=== PATIENT | female | born 1980 | race Caucasian/White ===

== ENCOUNTER 2018-03-24 09:04 | Emergency (ER) | payer BC ==
--- OUTSIDE RECORDS SUMMARY | 2018-03-24 09:10 | XMS REPORT ---
:1980 External Reference #:[id number] Author Organization [facility] Address [address] [place] [address] Phone [phone] Care Team Providers Name Role Phone Jessie Nair M.D. 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 Primary Care Physician Unavailable Payers Type Date Identification Numbers Payment Provider Subscriber Commercial Policy Number: [id number] BC/BS Of MARIA EUGENIA Leonsera Quintana [employer] Name: [employer] [address] [address] PayID: [id number] [place] [address] Problems Date Description Provider Status Onset: 06/24/2014 Palpitations Edwar Holland M.D. Resolved Resolved: 12/13/2015 Family History Date Family Member(s) Problem(s) Comments Father Rectal Cancer squamous cell Father Coronary Artery Disease - CABG. AAA Mother Hypertension Mother Ra, CAD, HTN, obesity, depression Paternal Grandfather Leukemia, heart disease. 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[employer] Cigarette Use Never Smoked Cigarettes ETOH Use Social Alcohol Smoking Patient has never smoked Daily Caffeine Consumes on average 1 cup of coffee per day Exercise Type/Frequency Current Does not exercise currently Allergies, Adverse Reactions, Alerts Date Description Reaction Status Severity Comments 02/23/2014 NKDA active Medications Medication Date Status Form Strength Qnty SIG Indications Ordering Provider Bupropion HCL ER 07/22 Active Tablets 150mg 30tab 1 by mouth (XL) ER 24HR s every day Mandy Nair Multivitamins Active Capsules 1 by mouth Unknown /0000 every day Spironolactone Active Tablets 50mg 1 by mouth Unknown /0000 every day Bupropion HCL 05/23 Hx Tablets 75mg 30tab 1 by mouth s every day Korey - M.DAriella 07/22 Azithromycin 05/15 Hx Tablets 250mg 6tabs 2 tabs today, then [place], - 1 tab daily M.D. 05/23 for next days Amoxicillin 12/09 Hx Tablets 875mg 14tab 1 tab twice J01.91 David A. s a day x 7 [place], - days M.D. 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 three 04/19 times a day /2014 until clear No Active 06/24 Hx Unknown Medications /2013 - 04/12 Nitrofurantoin 05/17 Hx Capsules 100mg 30cap Take 1 599.0 Kelsie Monohydrate/Macro s Capsule By dina Black - Mouth Once [employer] 06/24 After [place] Doxycycline 03/24 Hx Capsules 100mg 42cap 1 po bid Susi Hyclate /2013 s [facility], - [employer] 06/24 No Active 02/23 Hx Unknown Medications /2013 - 02/23 Work Note 02/23 Hx please excuse from [facility], - work due to [employer]UMP [employer] 04/06 infectious illness 02/21/14 through 02/24/14, may return without restriction s 02/25/14 Amoxicillin/Clavu 01/21 Hx Tablets 875-125mg 20tab 1 by mouth 461.9 carlos Garsia Potassium s twice a day M.D. - for 1 0days 02/22 Nitrofurantoin 12/04 Hx Capsules 100mg 30cap Take 1 599.0 Kelsie Monohydrate/ s Capsule By Sofia, crystals - Mouth Once [employer] 02/22 After [place] Polytrim 03/25 Hx Solution 58422-4.1 1bott 2 qtts in 372.00 Unit/ML-% le affected Sofia, - eye tid [employer] 02/22 until then 1 more day Biaxin 08/09 Hx Tablets 500mg 20tab 1 po bid Susi /2010 saima Szymanski, 10/29 M.D. Bupropion HCL 05/02 Hx Tablets 100mg 44tab 1 po qd x 2 311 Prachi LAriella ER 12HR s week. 1 po Citlaly, - bid 1 in M.D. 08/09 the am, noon. thereafter. Get A Massage. 05/02 Hx 311 Prachi LAriella Get Some Luis Boucher For - M.DAriella Yourself! 08/09 Lexapro 03/22 Hx Tablets 10mg 30tab 1 po qd 311 Prachi LAriella Michelet Enriquez M.D. 08/09 Citalopram 03/22 Hx Tablets 10mg 30tab 1 po daily Prachi Lee Hydrobromide Michelet Enriquez M.D. 08/09 Macrobid 02/13 Hx Caps 100mg 30cap Take One s Capsule By Sofia, - Mouth After [employer] 03/22 [place] Tri-Sprintec 10/26 Hx Tablets 0.035mg 1pk use as Kelsie directed Sofia, - [employer] 08/09 Nitrofurantoin 08/23 Hx Capsules 50mg Kelsie Macrocrystalline /2008 Sofia, - [employer] 08/23 Ortho-Tricyclen 08/23 Hx 1unit use as V25.09 Kelsie s directed Sofia, - [employer] 10/26 Nitrofurantoin 08/23 Hx Capsules 100mg 30cap 1 po after 599.0 Kelsie s intercourse Sofia, - [employer] 12/09 Nitrofurantoin 00 Hx Capsules 10cap prn Kelsie /0000 s Sofia, - [employer] 08/23 Multivitamins 00 Hx Tablets 100ta 1 po qd Unknown /0000 bs - 02/22 Loestrin 1.5/30 00/00 Hx Tablets 1.5-30mg- 1 by mouth Unknown () /0000 mcg every day - 02/15 Vital Signs Date Vital Result Comment 03/17/2018 BP Systolic 104 mmHg BP Diastolic 60 mmHg Heart Rate 68 /min Body Temperature 97.7 F Respiratory Rate 16 /min Height 67.25 inches 5'7.25" measured 12/13/15 Weight 126.00 lb BMI (Body Mass Index) 19.6 kg/m2 05/23/2017 BP Systolic 108 mmHg BP Diastolic 64 mmHg Heart Rate 64 /min Body Temperature 98.6 F Respiratory Rate 16 /min Height 67.25 inches 5'7.25" measured 12/13/15 Weight 128.25 lb BMI (Body Mass Index) 19.9 kg/m2 12/09/2016 BP Systolic 100 mmHg BP Diastolic 60 mmHg Heart Rate 86 /min Body Temperature 98.8 F Respiratory Rate 12 /min O2 % BldC Oximetry 98 % Height 67.25 inches 5'7.25" measured 12/13/15 Weight 129.00 lb BMI (Body Mass Index) 20.1 kg/m2 05/27/2016 BP Systolic 110 mmHg BP Diastolic 70 mmHg Heart Rate 64 /min Body Temperature 98.1 F Respiratory Rate 16 /min Height 67.25 inches 5'7.25" measured 12/13/15 Weight 126.00 lb BMI (Body Mass Index) 19.6 kg/m2 12/13/2015 BP Systolic 98 mmHg BP Diastolic 50 mmHg Heart Rate 72 /min Body Temperature 97.5 F Respiratory Rate 16 /min Height 67.25 inches 5'7.25" measured 12/13/15 Weight 125.12 lb BMI (Body Mass Index) 19.4 kg/m2 04/12/2015 BP Systolic 98 mmHg BP Diastolic 68 mmHg Heart Rate 76 /min Body Temperature 98.6 F Respiratory Rate 16 /min Height 67 inches 5'7" Weight 125.12 lb BMI (Body Mass Index) 19.6 kg/m2 06/24/2014 BP Systolic 112 mmHg BP Diastolic 64 mmHg Heart Rate 62 /min Body Temperature 98.7 F Respiratory Rate 16 /min Height 67 inches 5'7" Weight 122.00 lb BMI (Body Mass Index) 19.1 kg/m2 04/06/2014 BP Systolic 100 mmHg BP Diastolic 60 mmHg Heart Rate 72 /min Body Temperature 97.8 F Respiratory Rate 16 /min Height 67 inches 5'7" Weight 122.38 lb BMI (Body Mass Index) 19.2 kg/m2 02/23/2014 BP Systolic 92 mmHg BP Diastolic 62 mmHg Heart Rate 96 /min Body Temperature 97.0 F Height 67 inches 5'7" Weight 122.00 lb BMI (Body Mass Index) 19.1 kg/m2 01/21/2014 BP Systolic 100 mmHg BP Diastolic 68 mmHg Heart Rate 60 /min Body Temperature 96.4 F Respiratory Rate 18 /min O2 % BldC Oximetry 99 % Height 67 inches 5'7" Weight 122.00 lb BMI (Body Mass Index) 19.1 kg/m2 03/25/2011 BP Systolic 90 mmHg BP Diastolic 70 mmHg Heart Rate 60 /min Body Temperature 98.7 F Height 67 inches 5'7" Weight 124.00 lb BMI (Body Mass Index) 19.4 kg/m2 08/09/2010 BP Systolic 90 mmHg BP Diastolic 68 mmHg Heart Rate 90 /min Body Temperature 99.5 F Height 67 inches 5'7" Weight 123.00 lb BMI (Body Mass Index) 19.3 kg/m2 05/02/2010 BP Systolic 102 mmHg BP Diastolic 79 mmHg Heart Rate 76 /min Height 67 inches 5'7" Weight 123.00 lb BMI (Body Mass Index) 19.3 kg/m2 03/22/2010 BP Systolic 84 mmHg BP Diastolic 54 mmHg Heart Rate 72 /min Body Temperature 98.1 F Height 67 inches 5'7" Weight 126.00 lb BMI (Body Mass Index) 19.7 kg/m2 08/23/2009 BP Systolic 108 mmHg BP Diastolic 70 mmHg Heart Rate 64 /min Body Temperature 98.1 F Height 67 inches 5'7" Weight 127.00 lb BMI (Body Mass Index) 19.9 kg/m2 Results Test Date Test Result H/L Range Note Comp Metabolic Panel 06/13/2017 Sodium 137 mmol/L 133-145 Potassium 4.1 mmol/L 3.5-5.0 Chloride 105 mmol/L 101-111 Co2 Carbon Dioxide 28 mmol/L 22-32 Anion Gap 4 mmol/L 2-11 Glucose 92 mg/dL 70-100 Blood Urea Nitrogen 21 mg/dL 6-24 Creatinine 0.89 mg/dL 0.51-0.95 BUN/Creatinine Ratio 23.6 High 8-20 Calcium 9.1 mg/dL 8.6-10.3 Total Protein 6.6 g/dL 6.4-8.9 Albumin 4.1 g/dL 3.2-5.2 Globulin 2.5 g/dL 2-4 Albumin/Globulin Ratio 1.6 1-3 Total Bilirubin 0.50 mg/dL 0.2-1.0 Alkaline Phosphatase 33 U/L Low 34-104 Alt 11 U/L 7-52 Ast 11 U/L Low 13-39 Egfr Non- 71.0 >60 Egfr 91.3 >60 1 Lipid Profile (Trig/Chol/HDL) 06/13/2017 Triglycerides 71 mg/dL 2 Cholesterol 146 mg/dL 3 HDL Cholesterol 49.8 mg/dL 4 LDL Cholesterol 82 mg/dL 5 Urinalysis Profile 06/13/2017 Urine Color Yellow Urine Appearance Clear Urine Specific [place] 1.021 1.010-1.030 Urine pH 6.0 5-9 Urine Urobilinogen Negative Negative Urine Ketones Negative Negative Urine Protein Negative Negative Urine Leukocytes Negative Negative Urine Blood Negative Negative Urine Nitrite Negative Negative Urine Bilirubin Negative Negative Urine Glucose Negative Negative CBC Auto Diff 06/13/2017 White Blood Count 6.2 10^3/uL 3.5-10.8 Red Blood Count 4.54 10^6/uL 4.0-5.4 Hemoglobin 13.3 g/dL 12.0-16.0 Hematocrit 40 % 35-47 Mean Corpuscular Volume 89 fL 80-97 Mean Corpuscular Hemoglobin 29 pg 27-31 Mean Corpuscular HGB Conc 33 g/dL 31-36 Red Cell Distribution Width 13 % 10.5-15 Platelet Count 172 10^3/uL 150-450 Mean Platelet Volume 10 um3 7.4-10.4 Abs Neutrophils 4.1 10^3/uL 1.5-7.7 Abs Lymphocytes 1.5 10^3/uL 1.0-4.8 Abs Monocytes 0.4 10^3/uL 0-0.8 Abs Eosinophils 0.1 10^3/uL 0-0.6 Abs Basophils 0 10^3/uL 0-0.2 Abs Nucleated RBC 0 10^3/uL Granulocyte % 66.1 % 38-83 Lymphocyte % 24.4 % Low 25-47 Monocyte % 7.1 % 1-9 Eosinophil % 1.8 % 0-6 Basophil % 0.6 % 0-2 Nucleated Red Blood Cells % 0 Complete Blood Count 12/13/2015 WBC 8.2 x10^3/UL 3.6-9.6 RBC 4.55 x10^6/UL 3.90-5.70 HGB 13.3 g/dL 12.1-17.2 HCT 40 % 36-50 MCV 88.0 fL 82.2-97.4 MCH 29.2 pg 27.6-33.3 MCHC 33.3 g/dL 33.0-35.5 RDW 13.0 % 11.6-13.7 PLT 227 x10^3/UL 150-400 MPV 8.4 fL 7.4-10.4 Gran # 6.0 x10^3/UL 1.5-7.2 Lymph# 2.0 x10^3/UL 0.7-4.9 Pershing# 0.2 x10^3/UL 0.1-0.9 Gran % 71.7 % 42.2-75.2 Lymph % 25.1 % 20.5-51.1 Pershing% 3.2 % 1.7-9.3 Laboratory test finding 12/13/2015 Free T4 0.93 ng/dL 0.75-1.54 TSH 2.88 mIU/L 0.50-6.00 Serum Iron 68 g/dL 60-150 Ferritin 34 ng/mL 6-115 Laboratory test finding 12/13/2015 Luteinizing Hormone(LH), 18.1 mIU/mL 6, 7 S Testosterone, Free And 12/13/2015 Testosterone, Serum 5 ng/dL Low 8-48 6 Total Comment: TNP 6 Free Testosterone(Direct) 0.5 pg/mL 0.0-4.2 6 FSH, Serum 12/13/2015 FSH 8.8 mIU/mL 6, 8 Lyme Western Blot Ser 02/23/2014 IgG P93 Ab. Absent IgG P66 Ab. Absent IgG P58 Ab. Absent IgG P45 Ab. Absent IgG P41 Ab. Absent IgG P39 Ab. Absent IgG P30 Ab. Absent IgG P28 Ab. Absent IgG P23 Ab. Absent IgG P18 Ab. Absent Lyme IgG WB Interp. Negative 9 IgM P41 Ab. Absent IgM P39 Ab. Absent IgM P23 Ab. Absent Lyme IgM WB Interp. Negative 10 Lyme Igg/M W/RFX West 02/23/2014 Lyme IgG/IgM Ab 1.52 index High 0.00- 0.90 11 Lyme Ab Interp.,Eia Positive Lyme Disease Ab, Quant, IgM 0.94 index High 0.00-0.90 12 Lyme Ab IgM Interp., Eia Equivocal Babesia Microti AB PNL 02/23/2014 Babesia microti IgM <1:10 Neg:<1: 10 Babesia microti IgG <1:10 Neg:<1:10 13 Ebv Acute Infection Abs 02/23/2014 Ebv Ab Vca, IgM <36.0 U/mL 0.0- 35.9 14 Ebv Early Antigen Ab, IgG 71.6 U/mL High 0.0-8.9 15 Ebv Ab Vca, IgG 501.0 U/mL High 0.0-17.9 16 Ebv Nuclear Antigen Ab, IgG 104.0 U/mL High 0.0-17.9 17 Interpretation: SEE NOTE 18 Ehrlichia AB Panel 02/23/2014 E. chaffeensis (HME) IgG Negative Neg:<1 :64 (CTX) Titer E. chaffeensis (HME) IgM Titer Negative Neg:<1:20 19 Hge IgG Titer Negative Neg:<1:64 20 Hge IgM Titer Negative Neg:<1:20 21 Laboratory test 02/23/2014 Sed Rate (Fma/CMC/Centrex) 16mm finding Laboratory test 02/23/2014 Free T4 0.90 ng/dL 0.75-1.54 finding TSH 1.90 mIU/L 0.50-6.00 Vitamin B-12 338 pg/mL 230-1050 Vitamin D25 40 30-100 Comprehensive Metabolic Prof 02/23/2014 Sodium 140 mEq/L 134-149 Potassium 4.0 mEq/L 3.6-5.5 Chloride 98 mEq/L 94-112 Carbon Dioxide 27 mEq/L 21-32 Glucose 101 mg/dL 70-105 BUN 15 mg/dL 6-26 Creatinine 1.0 mg/dL 0.6-1.4 BUN/Creat Ratio 15.0 CALC 8.0-36.0 Calcium 9.4 mg/dL 8.6-10.2 Total Protein 7.1 g/dL 6.3-8.1 Albumin 4.8 g/dL 3.8-5.5 Globulin 2.3 g/dL 2.0-4.8 A/G Ratio 2.1 CALC 0.6-2.3 Alk. Phosphatase 56 U/L 30-110 Alt (SGPT) 17 U/L 7-35 Ast (Sgot) 16 U/L 5-34 Total Bilirubin 0.5 mg/dL 0.2-1.3 Complete Blood Count 02/23/2014 WBC 5.9 x10^3/UL 3.6-9.6 RBC 4.02 x10^6/UL 3.90-5.70 HGB 11.7 g/dL Low 12.1-17.2 HCT 35 % Low 36-50 MCV 86.0 fL 82.2-97.4 MCH 29.2 pg 27.6-33.3 MCHC 34.0 g/dL 33.0-35.5 RDW 11.8 % 11.6-13.7 PLT 163 x10^3/UL 150-400 MPV 8.1 fL 7.4-10.4 Gran # 5.0 x10^3/UL 1.5-7.2 Lymph# 0.8 x10^3/UL 0.7-4.9 Pershing# 0.1 x10^3/UL 0.1-0.9 Gran % 82.7 % High 42.2-75.2 Lymph % 15.1 % Low 20.5-51.1 Pershing% 2.2 % 1.7-9.3 Throat-Beta Strept 11/28/2013 Throat Beta Strep Culture (SEE NOTE) 22 CBC Auto Diff 06/03/2013 White Blood Count 6.4 10^3/uL 4.8-10.8 Red Blood Count 4.59 10^6/uL 4.0-5.4 Hemoglobin 13.5 g/dL 12.0-16.0 Hematocrit 40 % 35-47 Mean Corpuscular Volume 87 fL 80-97 Mean Corpuscular Hemoglobin 29 pg 27-31 Mean Corpuscular HGB Conc 34 g/dL 31-36 Red Cell Distribution Width 13 % 10.5-15 Platelet Count 149 10^3/uL Low 150-450 Mean Platelet Volume 10 um3 7.4-10.4 Abs Neutrophils 4.2 10^3/uL 1.5-7.7 Abs Lymphocytes 1.7 10^3/uL 1.0-4.8 Abs Monocytes 0.4 10^3/uL 0-0.8 Abs Eosinophils 0.1 10^3/uL 0-0.6 Abs Basophils 0 10^3/uL 0-0.2 Abs Nucleated RBC 0 10^3/uL Granulocyte % 65.4 % 38-83 Lymphocyte % 27.3 % 25-47 Monocyte % 5.9 % 1-9 Eosinophil % 1.1 % 0-6 Basophil % 0.3 % 0-2 Nucleated Red Blood Cells % 0 Laboratory test finding 06/03/2013 Hemoglobin A1c 5.3 % Less than 6.0 23 Free T4 0.92 ng/mL 0.61-1.24 TSH (Thyroid Stimulating Horm) 1.48 miu/mL 0.34-5.60 Laboratory test finding 10/09/2010 , Serum NEGATIVE Comprehensive Metabolic Prof 03/22/2010 Albumin 4.4 g/dL 3.8-5.5 Alk. Phos. 52 U/L 30-110 Alt (SGPT) 12 U/L 7-35 Ast (Sgot) 14 U/L 5-34 BUN 19 mg/dL 6-26 Calcium 9.6 mg/dL 8.6-10.2 Chloride 99 mEq/L 94-112 Creatinine 0.9 mg/dL 0.6-1.4 Carbon Dioxide 24 mEq/L 21-32 Glucose 116 mg/dL High 70-105 24 Sodium 139 mEq/L 134-149 Total Bilirubin 0.4 mg/dL 0.2-1.3 Total Protein 6.8 g/dL 6.3-8.1 Potassium 3.9 mEq/L 3.6-5.5 Globulin 2.5 g/dL 2.0-4.8 A/G Ratio 1.8 Calc 0.6-2.2 BUN/Creat Ratio 19.8 Calc 8.0-36.0 Laboratory test finding 03/22/2010 TSH 1.56 mIU/L 0.50-6.00 Laboratory test finding 03/22/2010 Vitamin D, 25 Oh 41.9 ng/mL 32.0- 100.0 25 CBC (Fma) 03/22/2010 WBC 8.5 3.6-9.6 RBC 4.41 3.90-5.70 Hemoglobin (Fma/CMC/CTX) 13.1 g/dL 12.1 - 17.2 Hematocrit (Fma/CMC/CTX) 37.2 % 36.1 - 50.3 Mean Corpuscular Vol 84.4 82.2-97.4 Mean Corpuscular Hemaglobin 29.7 27.6-33.3 Mean Corpuscular Hemo Concen 35.2 33.0-36.0 Platelets 211 10^3/ul 150-400 Lymph% 23.8 20.5-51.1 Mixed% 4.7 Neutrophils % 71.5 RDW 13.1 11.6-13.7 Mean Platelet Volume 12.1 High 7.4-10.4 1 Because ethnic data is not always readily available, this report includes an eGFR for both -Americans and non- Americans. The National Kidney Disease Education Program (NKDEP) does not endorse the use of the MDRD equation for patients that are not between the ages of 18 and 70, are , have extremes of body size, muscle mass, or nutritional status, or are non- or non-. According to the National Kidney Foundation, irrespective of diagnosis, the stage of the disease is based on the level of kidney function: Stage Description GFR(mL/min/1.73 m(2)) 1 Kidney damage with normal or decreased GFR 90 2 Kidney damage with mild decrease in GFR 60-89 3 Moderate decrease in GFR 30-59 4 Severe decrease in GFR 15-29 5 Kidney failure <15 (or dialysis) 2 Desirable <150 Borderline high 150-199 High 200-499 Very High >500 3 Desirable <200 Borderline high 200-239 High >239 4 Low <40 Desirable: 40-60 High: >60 5 Desirable: <100 mg/dL Near Optimal: 100-129 mg/dL Borderline High: 130-159 mg/dL High: 160-189 mg/dL Very High: >189 mg/dL 6 1 sst 7 Follicular phase 2.4 - 12.6 Ovulation phase 14.0 - 95.6 Luteal phase 1.0 - 11.4 Postmenopausal 7.7 - 58.5 8 Follicular phase 3.5 - 12.5 Ovulation phase 4.7 - 21.5 Luteal phase 1.7 - 7.7 Postmenopausal 25.8 - 134.8 9 Positive: 5 of the following Borrelia-specific bands: 18,23,28,30,39,41,45,58, 66, and 93. Negative: No bands or banding patterns which do not meet positive criteria. 10 Note: An equivocal or positive EIA result followed by a negative Western Blot result is considered NEGATIVE. An equivocal or positive EIA result followed by a positive Western Blot is considered POSITIVE by the CDC. Positive: 2 of the following bands: 23,39 or 41 Negative: No bands or banding patterns which do not meet positive criteria. Criteria for positivity are those recommended by CDC/ASTPHLD. p23=Osp C, c28=tjdmcseyb Note: Sera from individuals with the following may cross react in the Lyme Western Blot assays: other spirochetal diseases (periodontal disease, leptospirosis, relapsing fever, yaws, and pinta); connective autoimmune (Rheumatoid Arthritis and Systemic Lupus Erythematosus and also individuals with Antinuclear Antibody); other infections ([place] Spotted Fever; Annabelle-Park Virus, and Cytomegalovirus). 11 Negative <0.91 Equivocal 0.91 - 1.09 Positive >1.09 Note: The CDC currently advises that Western blot testing be performed following all equivocal or positive EIA results. Final diagnosis should include appropriate clinical findings and a positive EIA which is also positive by Western blot. 12 Negative <0.91 Equivocal 0.91 - 1.09 Positive >1.09 Note: IgM levels may peak at 3-6 weeks post infection, then gradually decline. FDA currently advises that Western Blot testing be performed following all equivocal or positive EIA results. Final diagnosis should include appropriate clinical findings and a positive EIA which is also positive by Western Blot. 13 This test was developed and its performance characteristics determined by [facility]. It has not been cleared or approved by the U.S. Food and Drug Administration. The FDA has determined that such clearance or approval is not necessary. This test is used for clinical purposes. It should not be regarded as investigational or research. 14 Negative <36.0 Equivocal 36.0 - 43.9 Positive >43.9 Please note reference interval change 15 Hepatitis A, Hepatitis C and HIV antibodies may cross-react with this assay. Negative < 9.0 Equivocal 9.0 - 10.9 Positive >10.9 Please note reference interval change 16 Negative <18.0 Equivocal 18.0 - 21.9 Positive >21.9 Please note reference interval change 17 Negative <18.0 Equivocal 18.0 - 21.9 Positive >21.9 Please note reference interval change 18 EBV Interpretation Chart Interpretation VCA-IgM VCA-IgG EBNA-ABS EBV Seronegative - - - Acute Infection + + - Past Infection - + + Indeterminate VCA IgG ONLY - + - VCA IgM ONLY + - - EBNA IgG ONLY - - + Convalescent + + + + Antibody Present - Antibody Absent 19 IgG titers if 1:64 or greater indicate exposure or acute and convalescent samples showing a four-fold increase, and/or the presence of IgM indicate recent or current infection. This test was developed and its performance characteristics determined by [facility]. It has not been cleared or approved by the U.S. Food and Drug Administration. The FDA has determined that such clearance or approval is not necessary. This test is used for clinical purposes. It should not be regarded as investigational or for research. 20 HGE IgG levels are detectable 7 to 10 days post infection and persist approximately one year. This test was developed and its performance characteristics determined by [facility]. It has not been cleared or approved by the U.S. Food and Drug Administration. The FDA has determined that such clearance or approval is not necessary. This test is used for clinical purposes. It should not be regarded as investigational or for research. 21 IgM levels usually rise 3 to 5 days post infection and fall to normal levels in approximately 30 to 60 days. This test was developed and its performance characteristics determined by [facility]. It has not been cleared or approved by the U.S. Food and Drug Administration. The FDA has determined that such clearance or approval is not necessary. This test is used for clinical purposes. It should not be regarded as investigational or for research. 22 RUN DATE: 11/30/13 [facility] LAB LIVE PAGE 1 RUN TIME: [address] [place] [address] Specimen Inquiry Name: OFELIA SPARKS Lilian : [address]: Isael Shultz MD Acct: [id number] Unit: [id number] AGE: 33 Location: [facility] Re11/28/13 SEX: F Status: DEP ER SPEC: [id number] MARIA ELENA: 11/28/[address]: Isael Shultz MD REQ: [id number] RECD: 11/28/13 STATUS: MARY JANE RODRIGUEZ DR: Carlos Carvalho MD _ SOURCE: THROAT SPDESC: ORDERED: Throat Beta Str Procedure Result Verified Site Throat Beta Strep Culture Final 11/30/13- 0847 ML Negative For Group A Beta Streptococcus END OF REPORT * ML=Testing performed at Main Lab DEPARTMENT OF PATHOLOGY, [address] [place] [address] Tab Horta M.D. Director [facility] Permit #[id number] 23 Therapeutic target for the treatment of diabetes Mellitus patients is <7% HBA1C, and in selective patients <6.0%.Please refer to [place] [employer] Diabetic care guidelines for further information. 24 result vernell'd 25 Recent studies consider the lower limit of 32.0 ng/mL to be a threshold for optimal health. Blas SINGH. J Nutr. 2005 Dec;135(2):317-22. Procedures Date CPT Code Description Status 12/09/2016 57925 Pulse Oximetry Completed 07/06/2014 69750 Event Monitoring Cardiac,interpretation Completed 07/06/2014 73330 Event Monitoring, Cardiac Completed 06/24/2014 05625 Electrocardiogram Complete Completed Encounters Type Date Location Provider CPT E/M Dx Office Visit 05/23/2017 9:30a [facility] Office Jessie Nair M.D. 15080 Z00.00 R68.82 Office Visit 12/09/2016 11:00a [facility] Office David Palacios M.D. 38580 J01.91 Office Visit 05/27/2016 8:15a [facility] [place] [address] R09.89 H69.83 Office Visit 12/13/2015 2:20p [facility] Office Jessie Nair M.D. 43885 D50.8 R53.83 Z00.00 R68.82 Office Visit 04/12/2015 10:00a [facility] [place] [address] 782.1 Office Visit 07/06/2014 4:15p Main Office Edwar Holland M.D. 57274 785.1 Office Visit 06/24/2014 4:00p Main Office Edwar Holland M.D. 64438 785.1 Office Visit 04/06/2014 9:00a [facility] Dmitriy Reddy-C 98176 465.9 780.79 Office Visit 02/23/2014 10:30a [facility] Susi Allegra [facility] 54298 465.9 780.79 268.9 Office Visit 01/21/2014 11:00a [facility] Lex Peralta M.D. 10351 461.9 Office Visit 03/25/2011 2:00p Main Office Kelsie Black [facility] 45799 372.00 Office Visit 08/09/2010 11:20a [facility] Susi Araujo 78599 483.0 M.D. Office Visit 05/02/2010 4:20p Main Office Prachi Boucher M.D. 87733 311 790.6 Office Visit 03/22/2010 1:00p [facility] Prachi Boucher M.D. 91793 E906.4 311 268.9 910.4 Office Visit 08/23/2009 3:30p [facility] Kelsie Black [facility] 37330 599.0 V25.09 300.00 Plan of Care 03/17/2018 - Jessie Nair M.D.R42 Dizziness and giddinessComments:stay hydrated , add more salt, if persists cut in half spironolactonecall if symptoms worsenAllComments:~B_~U_Medication Management~b_~u_ Patient Understands medications she's taking? Yes No Are there Barriers to Adherence? Yes No Has the patient been asked about herbal supplements and therapies, and OTC meds? Yes No
[2018-03-24 10:26] VITALS: BP 120/84
--- NOTE | 2018-03-24 11:05 | UC ---
Dizzy HPI HPI Summary: PATIENT PRESENTS WITH SEVERAL WEEKS OF INTERMITTENT LIGHTHEADEDNESS. SAW HER PCP LAST WEEK FOR THE SYMPTOMS AND HAD SPIRONOLACTONE (WHICH SHE WAS TAKING FOR ACNE) DISCONTINUED. SHE HAS BEEN OFF THIS MEDICINE FOR 2 DAYS NOW AND HER SYMPTOMS ARE PERSISTENT. NO CLEAR TRIGGER, NO ASSOCIATION WITH FOOD. NOT NECESSARILY WORSE WITH CHANGE IN POSITION. SHE DENIES CHEST PAIN, SHORTNESS OF BREATH, PALPITATIONS, FEVER, NAUSEA/VOMITING. NOT VERTIGINOUS. HAS HAD TO LEAVE WORK 3 TIMES DUE TO HER SYMPTOMS. - History Of Current Complaint Chief Complaint: UCDizziness Stated Complaint: DIZZINESS Time Seen by Provider: 03/24/18 09:48 Hx Obtained From: Patient Hx Last Menstrual Period: 03/10/18 Onset/Duration: Gradual Onset, Lasting Weeks, Still Present Timing: Intermittent Episode Lasting Severity Initially: Moderate Severity Currently: Moderate Pain Intensity: 0 Pain Scale Used: 0-10 Numeric Character: Lightheaded Aggravating Factor(s): Nothing Alleviating Factor(s): Nothing Associated Signs And Symptoms: Negative: Nausea, Vomiting, Tinnitus, Chest Pain , SOB, Palpitations, Unsteady Gait, Visual Changes - Allergies/Home Medications Allergies/Adverse Reactions: Allergies Allergy/AdvReac Type Severity Reaction Status Date / Time No Known Allergies Allergy Verified 03/24/18 09:13 Home Medications: Home Medications Bupropion XL* [Wellbutrin XL *] 150 mg PO DAILY 03/24/18 [History Confirmed 07/04] Multivitamin [Multivitamins] 1 cap PO DAILY 03/24/18 [History Confirmed 03/24/18 ] PMH/Surg Hx/FS Hx/Imm Hx Psychological History: Depression - Surgical History Surgical History: None - Family History Known Family History: Positive: Cardiac Disease - Social History Alcohol Use: Occasionally Substance Use Type: None Smoking Status (MU): Never Smoked Tobacco Review of Systems Constitutional: Negative Respiratory: Negative Cardiovascular: Negative Gastrointestinal: Negative Neurological: Other - LIGHTHEADED All Other Systems Reviewed And Are Negative: Yes Physical Exam Triage Information Reviewed: Yes Appearance: Well-Appearing, No Pain Distress, Well-Nourished Vital Signs: Initial Vital Signs Temp 98.2 F 03/24/18 09:09 Pulse 81 03/24/18 09:09 Resp 16 03/24/18 09:09 BP 138/78 03/24/18 09:09 Pulse Ox 100 03/24/18 09:09 Vital Signs Reviewed: Yes Eyes: Positive: Conjunctiva Clear ENT: Positive: Hearing grossly normal, Pharynx normal, TMs normal Neck: Positive: Supple, Nontender, No Lymphadenopathy Respiratory Exam: Normal Cardiovascular Exam: Normal Abdomen Description: Positive: Nontender, Soft Musculoskeletal: Positive: No Edema Neurological: Positive: Alert Psychological: Positive: Age Appropriate Behavior Skin: Negative: rashes Diagnostics - EKG Cardiac Rate: NL - 70BPM Cardiac Rhythm: Sinus: Normal Ectopy: None ST Segment: Normal Dizzy Course/Dx - Differential Dx/Diagnosis Provider Diagnoses: LIGHTHEADEDNESS Discharge - Sign-Out/Discharge Documenting (check all that apply): Discharge/Admit/Transfer - Discharge Plan Condition: Stable Disposition: HOME Patient Education Materials: Lightheadedjosh (ED) Referrals: Jessie Nair MD [Primary Care Provider] - 2 Weeks Additional Instructions: RANDOM BLOOD SUGAR TODAY WAS 107. ORTHOSTATIC VITAL SIGNS WERE UNREMARKABLE. EKG WAS UNREMARKABLE. BLOOD DRAWN TODAY TO CHECK BLOOD COUNT, METABOLIC PANEL AND THYROID. UNCLEAR ETIOLOGY OF YOUR SYMPTOMS. BE SURE TO STAY WELL-HYDRATED AND RESTED. FOLLOW-UP WITH YOUR PCP FOR FURTHER EVALUATION. YOU MAY BENEFIT FROM AN ECHOCARDIOGRAM OR HOLTER MONITOR. IF YOUR SYMPTOMS PERSIST OR WORSEN YOU MAY BE A CANDIDATE FOR A HEAD SCAN. GO TO THE ED WITHOUT FAIL IF YOU DEVELOP WORSENING DIZZINESS, LIGHTHEADEDNESS, SHORTNESS OF BREATH, CHEST PAIN, NAUSEA/VOMITING OR ANY OTHER CONCERNING SYMPTOMS. - Billing Disposition and Condition Condition: STABLE Disposition: HOME
[2018-03-24 16:27] LABS: ABS Basophils 0 10^3/ul (0-0.2); ABS Eosinophils 0 10^3/ul (0-0.6); ABS Lymphocytes 1.2 10^3/ul (1.0-4.8); ABS Monocytes 0.3 10^3/ul (0-0.8); ABS Neutrophils 6.9 10^3/ul (1.5-7.7); ABS Nucleated RBC 0 10^3/ul; Eosinophil % 0.4 % (0-6); Hematocrit 39 % (35-47); Hemoglobin 13.3 g/dl (12.0-16.0); Lymphocyte % 14.1 % (25-47); Mean Corpuscular HGB Conc 34 g/dl (31-36); Mean Corpuscular Hemoglobin 30 pg (27-31); Mean Corpuscular Volume 87 fL (80-97); Mean Platelet Volume 9.7 um3 (7.4-10.4); Nucleated Red Blood Cells % 0; Platelet Count 203 10^3/ul (150-450); Red Blood Count 4.53 10^6/ul (4.0-5.4); Red Cell Distribution Width 12 % (10.5-15); White Blood Count 8.5 10^3/ul (3.5-10.8)
[2018-03-24 16:43] LABS: EGFR Non-African American 76.5 (>60)
--- NOTE | 2018-03-25 10:39 | UC ---
- Progress Note Progress Note: reviewed CBC. CMP, tsh wnl no change Ljj 03/25/2018 Discharge - Sign-Out/Discharge Documenting (check all that apply): Discharge/Admit/Transfer, Post-Discharge Follow Up - Discharge Plan Condition: Stable Disposition: HOME Patient Education Materials: Lightheadedjosh (ED) Referrals: Jessie Nair MD [Primary Care Provider] - 2 Weeks Additional Instructions: RANDOM BLOOD SUGAR TODAY WAS 107. ORTHOSTATIC VITAL SIGNS WERE UNREMARKABLE. EKG WAS UNREMARKABLE. BLOOD DRAWN TODAY TO CHECK BLOOD COUNT, METABOLIC PANEL AND THYROID. UNCLEAR ETIOLOGY OF YOUR SYMPTOMS. BE SURE TO STAY WELL-HYDRATED AND RESTED. FOLLOW-UP WITH YOUR PCP FOR FURTHER EVALUATION. YOU MAY BENEFIT FROM AN ECHOCARDIOGRAM OR HOLTER MONITOR. IF YOUR SYMPTOMS PERSIST OR WORSEN YOU MAY BE A CANDIDATE FOR A HEAD SCAN. GO TO THE ED WITHOUT FAIL IF YOU DEVELOP WORSENING DIZZINESS, LIGHTHEADEDNESS, SHORTNESS OF BREATH, CHEST PAIN, NAUSEA/VOMITING OR ANY OTHER CONCERNING SYMPTOMS. - Billing Disposition and Condition Condition: STABLE Disposition: HOME
== END 2018-03-24 11:00 | disposition home or self-care (01) ==
LOC: UCEAST 09:04
DX: R42 Dizziness and giddiness (principal); F32.9 Major depressive disorder, single episode, unspecified
CPT/HCPCS: 36415; 80053; 84443; 85025; 93005; 99211; G0463